=== PATIENT | female | born 1985 | race Caucasian/White ===

== ENCOUNTER 2020-06-24 15:09 | Inpatient (IN) | payer BC, SELFPAY ==
[2020-06-24] VITALS (30 sets, daily range): BP systolic 106–157; BP diastolic 69–110; PULSE 94–140; RESP 12–33; TEMP 36.7–39.5; O2SAT 97–100; BMI 36.1
--- NOTE | ~2020-06-24 | XR_ITS ---
EXAMINATION: XR chest 1V portable DATE: 06/24/2020 15:35 INDICATION: Chills. TECHNIQUE: A single frontal view of the chest was obtained. COMPARISON: None. FINDINGS: The chest demonstrates clear lungs without pneumonia, pleural effusion, or pneumothorax. Th e heart size is normal. IMPRESSION: 1. No acute cardiopulmonary disease. Reviewed, dictated and finalized at location A.
--- NOTE | 2020-06-24 15:15 | ED.GENADULT ---
HPI - General Adult General Chief complaint: JAVA DESIGNER Stated complaint: CHILLS/SHAKING S/P DELIVERY 5 DAYS AGO Time Seen by Provider: 06/24/20 15:15 Source: patient, family, EMS and RN notes reviewed Mode of arrival: EMS Limitations: no limitations History of Present Illness HPI narrative: Patient is 34 years old white female presents to the ED with sudden onset of chills and feeling ice cold all over started within 40 minutes prior to arrival to the emergency room by ambulance. Patient denies any fever, nausea, vomiting, diarrhea, constipation. Patient is a status post vaginal delivery 4 days ago at [facility], second-degree vaginal tears, 12 stitches. Patient is telling me that she have urinary incontinence after removing the Low catheter during delivery. Currently patient have light vaginal bleeding without any odor. Patient started having breastmilk for the first time yesterday, kept massaging her breast with the hard to touch. Not warm, not red Related Data Allergies Allergy/AdvReac Type Severity Reaction Status Date / Time No Known Allergies Allergy Verified 06/24/20 15:44 Review of Systems Review of Systems: Narrative: CONSTITUTIONAL: Denies fever, chills, or sweats. EYES: Denies visual changes, redness, or discharge. ENT: Denies rhinorrhea, congestion, sore throat, or otalgia. CARDIOVASCULAR: Denies chest pain, palpitations, or edema. RESPIRATORY: Denies cough or dyspnea. GASTROINTESTINAL: Denies abdominal pain, nausea, vomiting, or diarrhea. GENITOURINARY: Denies dysuria or hematuria. SKIN: Denies rash or itching. MUSCULOSKELETAL: Denies back pain, joint pain, or myalgia. NEUROLOGIC: Denies headache, numbness, or weakness. PSYCHIATRIC: Denies anxiety or depression. PMFSH Social History Social History Gender identity (if verbalized by the patient): Female Exam Narrative: Exam Narrative: General appearance: Well-developed, well-nourished, looks anxious Skin: Normal color, breast exam showed diffuse hardening, no erythema, no warmth, Head: Normocephalic, nontraumatic Eyes: Clear conjunctiva ENT: Oropharynx normal, ears normal, nose normal Neck: Supple, nontender Chest and respiratory: Airway patent, no respiratory distress, no accessory muscle use Heart: Tachycardia Abdomen: Soft, nontender, no organomegaly, quiet bowel sounds Vascular: Normal peripheral pulses, normal capillary refill. Musculoskeletal: Normal range of motion, nontender back Neurologic: Alert and oriented ?3, [facility] is normal as tested, no gross motor deficit Course Course Emergency Course: Stable Vital Signs Vital signs: Vital Signs Temperature 39.5 C H 06/24/20 15:40 Pulse Rate 140 H 06/24/20 15:40 Respiratory Rate 32 H 06/24/20 15:40 Blood Pressure 121/77 06/24/20 15:40 Pulse Oximetry 99 06/24/20 15:40 Temperature 39.5 C H 06/24/20 15:40 Pulse Rate 140 H 06/24/20 15:40 Respiratory Rate 32 H 06/24/20 15:40 Blood Pressure 121/77 06/24/20 15:40 Pulse Oximetry 99 06/24/20 15:40 Medical Decision Making MDM Narrative Medical decision making narrative: Patient presents with sudden onset of chills status post vaginal delivery 4 days ago. The differential diagnosis as below. Labs, blood culture, UA, chest x-ray, IV fluid ordered. Further plan to follow Differential Diagnosis Differential Diagnosis: Pneumonia, urinary tract infection, mastitis Vital Signs Vital Signs: Vital Signs Temperature 39.5 C H 06/24/20 15:40 Pulse Rate 140 H 06/24/20 15:40 Respiratory Rate 32 H 06/24/20 15:40 Blood Pressure 121/77 06/24/20 15:40 Pulse Oximetry 99 06/24/20 15:40 Te
--- NOTE | 2020-06-24 15:25 | ECG_ITS ---
Measurements Intervals [place] Rate: 128 P: 52 FL: 130 QRS: 43 QRSD: 72 T: 18 QT: 298 QTc: 436 Interpretive Statements SINUS TACHYCARDIA BASELINE ARTIFACT- I, II, AVR ABNORMAL ECG Electronically Signed On 06-24-2020 17:53:01 CDT by Goran Hills D.O.
[2020-06-24 16:04] LABS: Hematocrit 36.3 % (37.0-47.0); Hemoglobin 12.3 g/dL (12.0-15.0); Mean Corpuscular HGB Conc 33.9 g/dl (32-36); Mean Corpuscular Hemoglobin 29.6 pg (26-34); Mean Corpuscular Volume 87.3 fl (80-100); Mean Platelet Volume 9.8 fl (7.4-10.4); Platelet Count Result 156 k/mm3 (150-375); Red Blood Count 4.16 M/mm3 (4.2-5.4); Red Cell Distribution Width 16.1 % (11.5-14.5); White Blood Count 4.2 K/mm3 (4.5-10.0)
[2020-06-24 16:17] LABS: Alanine Aminotransferase 40 U/L (4-35); Albumin Level 3.5 g/dL (3.5-5.1); Alkaline Phosphatase 127 U/L (38-126); Anion Gap 8 mmol/L (8-16); Aspartate Amino Transferase 46 U/L (14-36); Bilirubin,Total 0.4 mg/dL (0.2-1.3); Blood Urea Nitrogen 15 mg/dL (7-17); Carbon Dioxide 19 mmol/L (22-30); Chloride 108 mmol/L (98-107); Estimated CRCL calculation 127 ml/min; Estimated Glomerular Filt Rate > 60; Glucose 87 mg/dL (65-105); Potassium 3.4 mmol/L (3.4-5.0); Sodium 135 mmol/L (137-145)
[2020-06-24 16:20] LABS: Partial Thromboplastin Time 24.6 SECONDS (22.3-36.8)
[2020-06-24] MEDS: KETOROLAC 30 MG/ML VIAL (*BKC) IV PUSH (16:33)
[2020-06-24] MEDS: ACETAMINOPHEN 500 MG TABLET 1000 MG PO (16:33)
[2020-06-24 16:35] LABS: Band Neutrophils Percent 20 % (0-6); Eosinophils Absolute Manual 0.04 K/mm3 (0.02-0.5); Eosinophils Percent Manual 1 % (0-4); Lymphocytes Absolute Manual 0.92 K/mm3 (1.1-4.5); Monocytes Absolute Manual 0.04 K/mm3 (0.1-0.90); Monocytes Percent Manual 1 % (3-9); Neutrophils Absolute Manual 3.19 K/mm3 (1.7-7.2); Neutrophils Percent Manual 56 % (46-73); Nucleated Red Blood Cells 1 %; Platelet Estimate Adequate (Adequate); Total Cells Counted 100
[2020-06-24 16:36] LABS: Anisocytosis 2+ (NORMAL)
[2020-06-24 16:49] LABS: CRP 4.4 mg/dL (<1.0)
[2020-06-24 16:50] LABS: Lactic Acid Reflex 0.8 mmol/L (0.7-2.1)
[2020-06-24 16:51] LABS: Add Urine Microscopic? YES; Appearance Urine Cloudy (Clear); Bacteria Urine 1+ /hpf; Bilirubin Urine Negative (Negative); Blood Urine 2+ (Negative); Color Urine Yellow (Yellow); Glucose Urine UA Negative (Negative); Ketones Urine Negative (Negative); Leukocyte Esterase Ur 3+ LEU/UL (Negative); Mucus Urine Rare /lpf; Nitrate Urine Positive (Negative); Protein Urine 2+ mg/dL (Negative); Specific Grav Ur 1.011 (1.001-1.035); Squamous Epithelial Cell Urine Rare /hpf (Few); Urobilinogen Urine Negative mg/dL (<2.0); WBC Urine >75 /hpf
--- NOTE | 2020-06-24 19:30 | ADMGEN ---
This patient, Denise Castaneda, was admitted to Medical Room 347-. Patient/family oriented to hospital policies and general routines including ID bracelet, bed and alarms, visiting hours, pain management, procedures, bathroom and other care routines, personal items, smoking policy, room service/diet, and visiting hours. Information on how to activate the Rapid Response Team has been discussed. Patient/Family are encouraged to report perceived risks to care and to ask questions if they do not understand what they are told or what they should do.
[2020-06-24] MEDS: LACTATED RINGERS 1,000 ML 125 ML IV CONT (20:35)
--- NOTE | 2020-06-24 20:35 | PM.IMHP ---
H&P: HPI History of Present Illness Date/Time: 06/24/20 20:31 Denise is a 34yo now P1001 who presented to the ER via ambulance with fever. She is PPD#4 s/p vaginal delivery at [facility] that was complicated by second degree laceration. In the ER, she was found to have a fever of 39.5, tachycardic, and UA concerning for UTI/pyelonephritis. She is breast feeding and endorses engorgement but no erythema, has been feeding/pumping regularly. She is having incontinence but denies dysuria. She reports light vaginal bleeding, no fundal tenderness. She reports nausea. She reports some right sided flank pain starting yesterday, worsening today. She reports significant chills that also worsened today. She denies any other complications with her . She denies CP, SOB, cough, [place], vision changes, vomiting, dizziness, diarrhea, leg pain/swelling or palpitations. No COVID symptoms. Urine culture and blood cultures were sent from the ER. Chief Complaint: fever Review of Systems Review of Systems: All systems reviewed & are unremarkable except as noted in HPI and below (HPI) [facility] Family History Family History Other Unknown family medical history Social History Social History Smoking status: Never smoker Alcohol intake: former Substance use: never Gender identity (if verbalized by the patient): Female Sexual Orientation (if Verbalized by the Patient): Straight or Heterosexual Spiritual care concerns: No Meds Home Medications and Allergies Home Medications Medication Instructions Recorded Confirmed Type ferrous sulfate 325 mg PO DAILY 06/24/20 06/24/20 History fluticasone propionate [Flonase] 1 spray INTRANASAL DAILY 06/24/20 06/24/20 History no.[id number] 1 cap PO DAILY 06/24/20 06/24/20 History [HEEL SEAM [id number]] Allergies Allergy/AdvReac Type Severity Reaction Status Date / Time No Known Allergies Allergy Verified 06/24/20 20:27 Vital Signs Vital Signs - 24 hr 06/24/20 15:40 Temperature 39.5 C H Pulse Rate 140 H Respiratory Rate 32 H Blood Pressure 121/77 Pulse Oximetry 99 Exam Const: General: cooperative, healthy appearing, comfortable and no acute distress Chest: Breast/axilla inspection: normal inspection of the breasts (engorged; no erythema of masses) Resp: Effort & Inspection: normal respiratory effort and able to speak in complete sentences Auscultation: clear to auscultation bilaterally Cardio: Rate: regular rate GI: Inspection: normal to inspection and non-distended GI Palp: No abdominal tenderness and Yes Soft to palpation Auscultation: normal bowel sounds : External Female Exam: laceration (laceration repair intact w/o drainage; normal lochia) Back/Spine/Pelvis: Back: no CVA tenderness and CVA tenderness Skin: General skin exam: normal color Neuro: General: patient oriented x3 Extrem: General: normal to inspection Psych: Appearance: grossly normal Affect: normal affect Attitude: cooperative H&P: Results Labs Labs: Short CBC 06/24/20 Range/Units 15:56 WBC 4.2 L (4.5-10.0) K/mm3 Hgb 12.3 (12.0-15.0) g/dL Hct 36.3 L (37.0-47.0) % Plt Count 156 (150-375) k/mm3 BMP 06/24/20 15:56 Sodium 135 L Potassium 3.4 Chloride 108 H Carbon Dioxide 19 L BUN 15 Creatinine 0.60 L Glucose 87 Calcium 9.0 Liver Function 06/24/20 Range/Units 15:56 Total Bilirubin 0.4 (0.2-1.3) mg/dL AST 46 H (14-36) U/L ALT 40 H (4-35) U/L Alkaline Phosphatase 127 H (38-126) U/L Albumin 3.5 (3.5-5.1) g/dL Urine 06/24/20 Range/Units 16:08 Urine Color Yellow (Yellow) Urine Appearance Cloudy H (Clear) Urine pH 6.0 (5.0-9.0) Ur Specific [place] 1.011 (1.001-1.035) Urine Protein 2+ H (Negative) mg/dL Urine Glucose (UA) Negative (Negative) mg/dL Assessment an
[2020-06-25 01:20] VITALS: TEMP 38.1
[2020-06-25] MEDS: ACETAMINOPHEN 500 MG TABLET 1000 MG PO ×3 (01:20→19:59)
[2020-06-25 02:20] VITALS: TEMP 37.2
--- NOTE | 2020-06-25 02:45 | PC.NURSE ---
0120: Patient c/o chills and shaking. States she is unable to get warm. Fundus is firm. Bilateral breast are also taut at this time. Slight fever noted 100.5; treated with tylenol 1000 mg. 0250: Fever, chills and shaking resolved. Patient educated on need to pump breast regularly Q2-3; incorporating massage and warm towels to encourage milk release. Patient would benefit from more education.
--- NOTE | 2020-06-25 04:07 | PC.NURSE ---
Received a call from RN, about pt only breast pumping 2cc per breast and stopping without fully emptying each breast. Patient was educated about pumping until empty, rotating breast with each pump, staying hydrated and how to use breast pump. She also received three educational documents, left at her bedside. She stated it was hard to pump both breast at the same time with her IV that is in her AC. She was educated on pumping one breast at a time so her arm with the IV was straight so she was able to receive IV fluids and be alarm free. She was mostly frustrated stating she did not get a pump until 9pm and had to connect the pump herself after not being able to pump for 6 hours. I explained the importance of now pumping every 2 hours and staying hydrated and we both went over how to place the pump to breast and how to connect pump. Her mother will be coming in this morning for emotional support and I stated the [place] consultant will be here on Friday if she has anymore questions or the nursery nurses can be reached to come over and assist in helping.
[2020-06-25] MEDS: KETOROLAC 30 MG/ML VIAL (*BKC) IV PUSH ×2 (04:52→12:00)
[2020-06-25 06:20] VITALS: BP 125/68; PULSE 84; RESP 12; TEMP 37.2; O2SAT 98
[2020-06-25 06:21] LABS: Hematocrit 31.8 % (37.0-47.0); Hemoglobin 10.9 g/dL (12.0-15.0); Mean Corpuscular HGB Conc 34.3 g/dl (32-36); Mean Corpuscular Hemoglobin 28.9 pg (26-34); Mean Corpuscular Volume 84.4 fl (80-100); Mean Platelet Volume 9.9 fl (7.4-10.4); Platelet Count Result 169 k/mm3 (150-375); Red Blood Count 3.77 M/mm3 (4.2-5.4); Red Cell Distribution Width 16.1 % (11.5-14.5); White Blood Count 13.2 K/mm3 (4.5-10.0)
[2020-06-25 06:41] LABS: Alanine Aminotransferase 35 U/L (4-35); Alkaline Phosphatase 101 U/L (38-126); Anion Gap 6 mmol/L (8-16); Aspartate Amino Transferase 37 U/L (14-36); Bilirubin,Total 0.3 mg/dL (0.2-1.3); Blood Urea Nitrogen 13 mg/dL (7-17); Calcium 8.2 mg/dL (8.4-10.2); Carbon Dioxide 21 mmol/L (22-30); Chloride 110 mmol/L (98-107); Estimated CRCL calculation 110 ml/min; Estimated Glomerular Filt Rate > 60; Glucose 101 mg/dL (65-105); Potassium 3.3 mmol/L (3.4-5.0); Sodium 137 mmol/L (137-145)
[2020-06-25] MEDS: LACTATED RINGERS 1,000 ML 125 ML IV CONT ×2 (06:58→16:47)
[2020-06-25 08:13] LABS: Band Neutrophils Percent 8 % (0-6); Lymphocytes Absolute Manual 1.32 K/mm3 (1.1-4.5); Monocytes Absolute Manual 0.26 K/mm3 (0.1-0.90); Monocytes Percent Manual 2 % (3-9); Neutrophils Absolute Manual 11.61 K/mm3 (1.7-7.2); Neutrophils Percent Manual 80 % (46-73); Total Cells Counted 100
[2020-06-25 08:14] LABS: Hypochromasia 2+ (NORMAL); Platelet Estimate Adequate (Adequate); Poikilocytosis 1+ (NORMAL)
[2020-06-25 10:16] VITALS: O2SAT 96
[2020-06-25 14:00] VITALS: BP 123/64; PULSE 83; RESP 18; TEMP 36.7; O2SAT 100
--- NOTE | 2020-06-25 16:02 | PM.OBPNVD ---
OB - PN: Subj Subjective Date/time seen: 06/25/20 16:02 PPD #5 Denise reports doing well today, would like to go home K[place]. She had a fever overnight. Her WBC also increased from 4 to 13.2. She denies any new symptoms. She is urinating w/o issues (continent now). She denies dysuria or flank pain. Her bleeding is light. She is pumping w/o issue. She is tolerating regular diet, passing gas. No CP, SOB, chills, N/V, diarrhea, URI symptoms, palpitations or dizziness. No abdominal pain. Blood and urine cultures are still pending. OB - PN: Obj Data Labs CBC & Chem 7: 06/25/20 05:50 06/25/20 05:50 Labs: Laboratory Results - last 24 hr 06/24/20 06/24/20 06/24/20 15:56 15:56 15:56 WBC 4.2 L RBC 4.16 L Hgb 12.3 Hct 36.3 L MCV 87.3 MCH 29.6 MCHC 33.9 RDW 16.1 H Plt Count 156 MPV 9.8 Immature Gran % (Auto) Not Reportable Neut % (Auto) Not Reportable Lymph % (Auto) Not Reportable [place] % (Auto) Not Reportable Eos % (Auto) Not Reportable Baso % (Auto) Not Reportable Lymph # (Auto) Not Reportable [place] # (Auto) Not Reportable Eos # (Auto) Not Reportable Baso # (Auto) Not Reportable Abs Immat Gran (auto) Not Reportable Absolute Neuts (auto) Not Reportable Absolute Nucleated RBC Not Reportable Total Counted 100 Neutrophils % (Manual) 56 Band Neutrophils % 20 H Lymphocytes % (Manual) 22.0 Monocytes % (Manual) 1 L Eosinophils % (Manual) 1 Nucleated RBC % Not Reportable Abs Neuts (Manual) 3.19 Abs Lymphs (Manual) 0.92 L Abs Monocytes (Manual) 0.04 L Absolute Eos (Manual) 0.04 Nucleated RBCs 1 Platelet Estimate Adequate Hypochromasia Poikilocytosis Anisocytosis 2+ PT 14.0 INR 1.0 APTT 24.6 Sodium 135 L Potassium 3.4 Chloride 108 H Carbon Dioxide 19 L Anion Gap 8 BUN 15 Creatinine 0.60 L Estim Creat Clear Calc 127 Estimated GFR > 60 Glucose 87 Lactic Acid Calcium 9.0 Total Bilirubin 0.4 AST 46 H ALT 40 H Alkaline Phosphatase 127 H C-Reactive Protein 4.4 H Total Protein 7.0 Albumin 3.5 Urine Color Urine Appearance Urine pH Ur Specific [place] Urine Protein Urine Glucose (UA) Urine Ketones Ur Blood (Man) Urine Nitrate Urine Bilirubin Urine Urobilinogen Leukocyte Esterase Rfl Urine RBC Urine WBC Ur Squamous Epith Cells Urine Bacteria Urine Mucus 06/24/20 06/24/20 06/25/20 16:08 16:33 05:50 WBC 13.2 H RBC 3.77 L Hgb 10.9 L Hct 31.8 L MCV 84.4 MCH 28.9 MCHC 34.3 RDW 16.1 H Plt Count 169 MPV 9.9 Immature Gran % (Auto) Not Reportable Neut % (Auto) Not Reportable Lymph % (Auto) Not Reportable [place] % (Auto) Not Reportable Eos % (Auto) Not Reportable Baso % (Auto) Not Reportable Lymph # (Auto) Not Reportable [place] # (Auto) Not Reportable Eos # (Auto) Not Reportable Baso # (Auto) Not Reportable Abs Immat Gran (auto) Not Reportable Absolute Neuts (auto) Not Reportable Absolute Nucleated RBC Not Reportable Total Counted 100 Neutrophils % (Manual) 80 H Band Neutrophils % 8 H Lymphocytes % (Manual) 10.0 L Monocytes % (Manual) 2 L Eosinophils % (Manual) Nucleated RBC % Not Reportable Abs Neuts (Manual) 11.61 H Abs Lymphs (Manual) 1.32 Abs Monocytes (Manual) 0.26 Absolute Eos (Manual) Nucleated RBCs Platelet Estimate Adequate Hypochromasia 2+ Poikilocytosis 1+ Anisocytosis PT INR APTT Sodium Potassium Chloride Carbon Dioxide Anion Gap BUN Creatinine Estim Creat Clear Calc Estimated GFR Glucose Lactic Acid 0.8 Calcium Total Bilirubin AST ALT Alkaline Phosphatase C-Reactive Protein Total Protein Albumin Urine Color Yellow Urine Appearance Cloudy H Ur
--- NOTE | 2020-06-25 18:17 | PC.NURSE ---
Dr. Saab confirmed consult via telephone callback. Verbalized agreement with current antibiotic therapy as ordered by Dr. Tim. Will review chart and assess patient Friday.
[2020-06-25 19:53] VITALS: BP 139/71; PULSE 90; RESP 12; TEMP 36.9; O2SAT 100
[2020-06-26] MEDS: LACTATED RINGERS 1,000 ML 125 ML IV CONT ×3 (02:26→21:50)
[2020-06-26] MEDS: KETOROLAC 30 MG/ML VIAL (*BKC) IV PUSH (02:28)
[2020-06-26 03:13] LABS: Basophils Percent Auto 0.4 % (0.2-1.2); Eosinophils Absolute Auto 0.1 K/mm3 (0-0.3); Eosinophils Percent Auto 1.4 % (0-4.4); Hematocrit 29.9 % (37.0-47.0); Hemoglobin 10.2 g/dL (12.0-15.0); Immature Granulocyte Absolute 0.24 K/mm3 (0.00-0.031); Immature Granulocyte Percent A 2.9 % (0-0.5); Lymphocytes Absolute Auto 0.77 K/mm3 (0.9-3.2); Lymphocytes Percent Auto 9.2 % (18.3-44.2); Mean Corpuscular HGB Conc 34.1 g/dl (32-36); Mean Corpuscular Hemoglobin 29.7 pg (26-34); Mean Corpuscular Volume 86.9 fl (80-100); Mean Platelet Volume 9.7 fl (7.4-10.4); Monocytes Absolute Auto 0.6 K/mm3 (0.1-0.6); Monocytes Percent Auto 7.7 % (2.6-8.5); Neutrophils Absolute Auto 6.6 K/mm3 (1.3-6.7); Neutrophils Percent Auto 78.4 % (45.5-73.1); Platelet Count Result 144 k/mm3 (150-375); Red Blood Count 3.44 M/mm3 (4.2-5.4); Red Cell Distribution Width 16.4 % (11.5-14.5); White Blood Count 8.4 K/mm3 (4.5-10.0)
[2020-06-26 03:22] LABS: Anion Gap 5 mmol/L (8-16); Blood Urea Nitrogen 16 mg/dL (7-17); Calcium 8.2 mg/dL (8.4-10.2); Carbon Dioxide 22 mmol/L (22-30); Chloride 108 mmol/L (98-107); Estimated CRCL calculation 98 ml/min; Estimated Glomerular Filt Rate > 60; Glucose 125 mg/dL (65-105); Potassium 3.3 mmol/L (3.4-5.0); Sodium 135 mmol/L (137-145)
[2020-06-26 06:05] VITALS: BP 134/82; PULSE 97; RESP 12; TEMP 36.5; O2SAT 100
--- NOTE | 2020-06-26 08:05 | PM.GYNPNOP ---
HEAVY CLEANER - A/P Assessment and plan (1) Pyelonephritis: Code(s): N12 - Tubulo-interstitial nephritis, not specified as acute or chronic Status: Acute Assessment and Plan: Afebrile and no elevated WBC. Will await Dr Saab input on antibiotic choice and duration re: home or continued in-house stay. Time Spent With Patient Time: Total time spent is greater than 50% in coordination of care (as documented) at patient's floor/unit and/or counseling patient: Time with patient: less than 15 minutes HEAVY CLEANER- PN:Subj Post-Op Subjective Date/time seen: 06/26/20 08:05 Feels better overall. Now continent. HEAVY CLEANER - PN: Obj Data Vital Signs Vital Signs: Vital Signs - 24 hr 06/25/20 10:16 06/25/20 14:00 06/25/20 19:53 Temperature 36.7 C 36.9 C Pulse Rate 83 90 Respiratory Rate 18 12 Blood Pressure 123/64 139/71 Pulse Oximetry 96 100 100 06/26/20 06:05 Temperature 36.5 C Pulse Rate 97 Respiratory Rate 12 Blood Pressure 134/82 Pulse Oximetry 100 Intake/Output Intake/Output: Intake & Output 06/23/20 06/24/20 06/25/20 06/26/20 23:59 23:59 23:59 23:59 Intake Total 50 5570 1900 Output Total 2300 2200 Balance 50 3270 -300 Meds/Results Medications: Active Medications Generic Name Dose Route Start Last Admin Trade Name Freq PRN Reason Stop Dose Admin Acetaminophen 1,000 mg 06/24/20 19:28 06/25/20 19:59 Acetaminophen 500 Mg Tablet PO 1,000 mg Q6H PRN Administration Mild Pain (1-3) or Fever Lactated Ringer's 1,000 mls @ 125 mls/hr 06/24/20 19:30 06/26/20 02:26 Lr - Lactated Ringers Iv IV CONT 125 mls/hr .Q8H GREGORY Administration Piperacillin Sod/Tazobactam Sod 4.5 gm in 100 mls @ 200 mls/hr 06/25/20 18:00 06/26/20 05:58 Zosyn 4.5 Gm/D5w 100 Ml IVPB Infused Q6HR GREGORY Infusion Ketorolac Tromethamine 30 mg 06/24/20 17:28 06/26/20 02:28 Ketorolac 30 Mg/Ml Vial (*Bkc) IV PUSH 06/29/20 17:29 30 mg Q6H PRN Administration Pain Rated 4-6 Ondansetron HCl 4 mg 06/24/20 17:28 Ondansetron Inj 4 Mg/2 Ml Vial IV PUSH Q4H PRN Nausea Radiology Results: ITS Impressions Chest X-Ray 06/24/20 15:42 IMPRESSION: 1. No acute cardiopulmonary disease. Labs CBC & Chem 7: 06/26/20 03:02 06/26/20 03:02 Labs: Laboratory Results - last 24 hr 06/25/20 06/26/20 06/26/20 05:50 03:02 03:02 WBC 8.4 RBC 3.44 L Hgb 10.2 L Hct 29.9 L MCV 86.9 MCH 29.7 MCHC 34.1 RDW 16.4 H Plt Count 144 L MPV 9.7 Immature Gran % (Auto) 2.9 H Neut % (Auto) 78.4 H Lymph % (Auto) 9.2 L [place] % (Auto) 7.7 Eos % (Auto) 1.4 Baso % (Auto) 0.4 Lymph # (Auto) 0.77 L [place] # (Auto) 0.6 Eos # (Auto) 0.1 Baso # (Auto) 0.0 Abs Immat Gran (auto) 0.24 H Absolute Neuts (auto) 6.6 Absolute Nucleated RBC 0.0 Total Counted 100 Neutrophils % (Manual) 80 H Band Neutrophils % 8 H Lymphocytes % (Manual) 10.0 L Monocytes % (Manual) 2 L Nucleated RBC % 0.0 Abs Neuts (Manual) 11.61 H Abs Lymphs (Manual) 1.32 Abs Monocytes (Manual) 0.26 Platelet Estimate Adequate Hypochromasia 2+ Poikilocytosis 1+ Sodium 135 L Potassium 3.3 L Chloride 108 H Carbon Dioxide 22 Anion Gap 5 L BUN 16 Creatinine 0.80 Estim Creat Clear Calc 98 Estimated GFR > 60 Glucose 125 H Calcium 8.2 L
[2020-06-26] MEDS: ACETAMINOPHEN 500 MG TABLET 1000 MG PO ×2 (11:07→17:28)
[2020-06-26 11:20] VITALS: TEMP 37.6
--- NOTE | 2020-06-26 11:34 | WPDINFPN2 ---
Progress Note: A&P Assessment and Plan (1) Fever: Code(s): R50.9 - Fever, unspecified Status: Acute Assessment and Plan: Rigors and fever due to Low catheter-associated UTI and bacteremia REC PipTazo, await final micro before oral Subjective Date/time seen: 06/26/20 11:34 Objective Data Vital Signs Vital Signs: Vital Signs - 24 hr 06/25/20 14:00 06/25/20 19:53 06/26/20 06:05 Temperature 36.7 C 36.9 C 36.5 C Pulse Rate 83 90 97 Respiratory Rate 18 12 12 Blood Pressure 123/64 139/71 134/82 Pulse Oximetry 100 100 100 06/26/20 11:20 Temperature 37.6 C H Pulse Rate Respiratory Rate Blood Pressure Pulse Oximetry Intake/Output Intake/Output: Intake & Output 06/23/20 06/24/20 06/25/20 06/26/20 23:59 23:59 23:59 23:59 Intake Total 50 5570 2140 Output Total 2300 3100 Balance 50 3270 -960 Meds/Results Medications: Active Medications Generic Name Dose Route Start Last Admin Trade Name Freq PRN Reason Stop Dose Admin Acetaminophen 1,000 mg 06/24/20 19:28 06/26/20 11:07 Acetaminophen 500 Mg Tablet PO 1,000 mg Q6H PRN Administration Mild Pain (1-3) or Fever Lactated Ringer's 1,000 mls @ 125 mls/hr 06/24/20 19:30 06/26/20 02:26 Lr - Lactated Ringers Iv IV CONT 125 mls/hr .Q8H GREGORY Administration Piperacillin Sod/Tazobactam Sod 4.5 gm in 100 mls @ 200 mls/hr 06/25/20 18:00 06/26/20 11:10 Zosyn 4.5 Gm/D5w 100 Ml IVPB 200 mls/hr Q6HR GREGORY Administration Ketorolac Tromethamine 30 mg 06/24/20 17:28 06/26/20 02:28 Ketorolac 30 Mg/Ml Vial (*Bkc) IV PUSH 06/29/20 17:29 30 mg Q6H PRN Administration Pain Rated 4-6 Ondansetron HCl 4 mg 06/24/20 17:28 Ondansetron Inj 4 Mg/2 Ml Vial IV PUSH Q4H PRN Nausea Radiology Results: ITS Impressions Chest X-Ray 06/24/20 15:42 IMPRESSION: 1. No acute cardiopulmonary disease. Labs Labs: Laboratory Results - last 24 hr 06/26/20 06/26/20 03:02 03:02 WBC 8.4 RBC 3.44 L Hgb 10.2 L Hct 29.9 L MCV 86.9 MCH 29.7 MCHC 34.1 RDW 16.4 H Plt Count 144 L MPV 9.7 Immature Gran % (Auto) 2.9 H Neut % (Auto) 78.4 H Lymph % (Auto) 9.2 L [place] % (Auto) 7.7 Eos % (Auto) 1.4 Baso % (Auto) 0.4 Lymph # (Auto) 0.77 L [place] # (Auto) 0.6 Eos # (Auto) 0.1 Baso # (Auto) 0.0 Abs Immat Gran (auto) 0.24 H Absolute Neuts (auto) 6.6 Absolute Nucleated RBC 0.0 Nucleated RBC % 0.0 Sodium 135 L Potassium 3.3 L Chloride 108 H Carbon Dioxide 22 Anion Gap 5 L BUN 16 Creatinine 0.80 Estim Creat Clear Calc 98 Estimated GFR > 60 Glucose 125 H Calcium 8.2 L
[2020-06-26 14:21] VITALS: BP 122/85; PULSE 80; RESP 16; TEMP 36.3; O2SAT 100
[2020-06-26 16:27] VITALS: TEMP 37.8
[2020-06-26 17:28] VITALS: TEMP 37.8
--- NOTE | 2020-06-26 17:37 | CONS_ITS ---
DATE OF CONSULTATION: 06/26/2020 REASON FOR CONSULTATION: Bacteremia. HISTORY OF PRESENT ILLNESS: A 34-year-old female who went into labor 5 days before the present admission and delivered early on the following day, June 20. She was discharged 2 days later. This was a vaginal delivery. She had epidural and also a Low catheter for a number of hours . After the Low was removed, she had urinary urgency and urinary incontinence, which is unusual for her. At home, she had also development of some right flank discomfort. On the day of admission, she had sudden onset of rigors with fever, which occurred later that evening as well. She had been given piperacillin tazobactam. Blood cultures now positive. Consultation requested. She has had no previous bloodstream infection. No other antibiotics in the last 6 weeks for any purpose. She has had no previous operations other than a cyst removal from the skin structures. She otherwise is healthy. She has had no further rigors in the last day and half. She has some vaginal bleeding but no pelvic pain. The incontinence has improved so far. ALLERGIES: NONE KNOWN. MEDICATIONS: As above. HABITS: No tobacco and no alcohol. PAST MEDICAL HISTORY: See above. No chronic medical illnesses. FAMILY HISTORY: Not pertinent to her present illness. SOCIAL HISTORY: She is an assistant financial accountant. , lives locally. The delivery was in [place], but she preferred to come to this hospital on the . She is breast-feeding. REVIEW OF SYSTEMS: Skin, constitutional, respiratory, GI, , otherwise negative. PHYSICAL EXAMINATION: GENERAL: Young female appears her actual age. No acute distress. VITAL SIGNS: Temperature on admission was 39.5 and early the following morning up to 38.1, now 37.6, 97, 12, 134/82, 99% room air. SKIN: No rashes. Warm and dry. She has a few ecchymoses where vein sticks have occurred. She has no ecchymoses elsewhere. ENT: The conjunctivae are normal. OROPHARYNX: Oral mucosa normal. NECK: No masses or thyromegaly. LUNGS: Clear to auscultation and percussion. BACK: No CVAT. CARDIAC: Regular rate and rhythm. No murmur, gallop, or rub. Pulses are 2+. ABDOMEN: Mildly obese, nontender. No masses. No organomegaly. Nondistended. EXTREMITIES: No clubbing, cyanosis, edema. LABORATORY DATA: Blood cultures from arrival, 2/2 sets, gram-negative rods to be identified. Urine culture, no results as yet. Blood cultures repeated early today. White blood cell count 8.4 today, was 4.2 on admission, 13.2 yesterday. Hemoglobin 10.2, which is down 2 points and platelets are 144. Differential with a minimal left shift. Chemistries with mild hyponatremia, hypokalemia. Glucose was normal on admission, now 125. Her transaminases are up, less than twice normal. Albumin 3.0. Urinalysis, multiple abnormalities, which are reviewed. RADIOLOGY: Chest x-ray normal. ASSESSMENT: 1. Fever and rigors due to gram-negative bacteremia in turn due to urinary tract infection. Other causes of her bacteremia are less likely including vaginal, uterine, lower GI, or primary bloodstream. Other causes for fever are unlikely. 2. day #6. RECOMMENDATIONS: 1. Piperacillin appropriate at this time. 2. Follow up on microbiology and once all results are back and if she is clinically stable, oral therapy could then be started. Thank you very much for asking me to see her. FRANSISCA LOYOLA M.D. ASSISTANT CORPORATE CONTROLLER ASSISTANT CORPORATE CONTROLLER D I MT: Isa
[2020-06-26 20:02] VITALS: BP 143/71; PULSE 67; RESP 16; TEMP 36.8; O2SAT 98
[2020-06-27] MEDS: ACETAMINOPHEN 500 MG TABLET 1000 MG PO (05:28)
[2020-06-27 05:34] VITALS: BP 147/88; PULSE 68; RESP 16; TEMP 36.6; O2SAT 100
[2020-06-27 05:58] LABS: Basophils Percent Auto 0.7 % (0.2-1.2); Eosinophils Percent Auto 0.5 % (0-4.4); Hematocrit 31.8 % (37.0-47.0); Hemoglobin 10.7 g/dL (12.0-15.0); Immature Granulocyte Absolute 0.26 K/mm3 (0.00-0.031); Immature Granulocyte Percent A 4.4 % (0-0.5); Lymphocytes Absolute Auto 1.23 K/mm3 (0.9-3.2); Mean Corpuscular HGB Conc 33.6 g/dl (32-36); Mean Corpuscular Hemoglobin 29.2 pg (26-34); Mean Corpuscular Volume 86.6 fl (80-100); Mean Platelet Volume 9.8 fl (7.4-10.4); Monocytes Absolute Auto 0.7 K/mm3 (0.1-0.6); Monocytes Percent Auto 11.1 % (2.6-8.5); Neutrophils Absolute Auto 3.7 K/mm3 (1.3-6.7); Neutrophils Percent Auto 62.3 % (45.5-73.1); Platelet Count Result 149 k/mm3 (150-375); Red Blood Count 3.67 M/mm3 (4.2-5.4); Red Cell Distribution Width 16.1 % (11.5-14.5); White Blood Count 5.9 K/mm3 (4.5-10.0)
[2020-06-27 06:29] LABS: Alanine Aminotransferase 126 U/L (4-35); Albumin Level 2.9 g/dL (3.5-5.1); Alkaline Phosphatase 260 U/L (38-126); Anion Gap 6 mmol/L (8-16); Aspartate Amino Transferase 143 U/L (14-36); Bilirubin,Total 0.1 mg/dL (0.2-1.3); Blood Urea Nitrogen 8 mg/dL (7-17); Calcium 8.2 mg/dL (8.4-10.2); Carbon Dioxide 22 mmol/L (22-30); Chloride 110 mmol/L (98-107); Estimated CRCL calculation 110 ml/min; Estimated Glomerular Filt Rate > 60; Glucose 90 mg/dL (65-105); Potassium 3.5 mmol/L (3.4-5.0); Sodium 138 mmol/L (137-145)
[2020-06-27] MEDS: LACTATED RINGERS 1,000 ML 125 ML IV CONT (07:00)
--- NOTE | 2020-06-27 07:36 | PM.OBPNVD ---
OB - PN: Subj Subjective Date/time seen: 06/27/20 07:36 HD #4, PPD#7 Denise reports feeling well. Afebrile overnight. WBC has trended down to 5.9. Blood and urine cultures are growing e. coli; sensitivities pending. She has continued receiving zosyn. She is tolerating regular diet. Normal bowel/bladder function. She is ambulating. She denies pain. Her vaginal bleeding is light.She it pumping. She denies CP, SOB, fever, chills, dysuria, flank pain, N/V, LE swelling, [place], vision changes, dizziness, or palpitations. OB - PN: Obj Data Labs CBC & Chem 7: 06/27/20 05:53 06/27/20 05:53 Labs: Laboratory Results - last 24 hr 06/27/20 06/27/20 05:53 05:53 WBC 5.9 RBC 3.67 L Hgb 10.7 L Hct 31.8 L MCV 86.6 MCH 29.2 MCHC 33.6 RDW 16.1 H Plt Count 149 L MPV 9.8 Immature Gran % (Auto) 4.4 H Neut % (Auto) 62.3 Lymph % (Auto) 21.0 [place] % (Auto) 11.1 H Eos % (Auto) 0.5 Baso % (Auto) 0.7 Lymph # (Auto) 1.23 [place] # (Auto) 0.7 H Eos # (Auto) 0.0 Baso # (Auto) 0.0 Abs Immat Gran (auto) 0.26 H Absolute Neuts (auto) 3.7 Absolute Nucleated RBC 0.0 Nucleated RBC % 0.0 Sodium 138 Potassium 3.5 Chloride 110 H Carbon Dioxide 22 Anion Gap 6 L BUN 8 D Creatinine 0.70 Estim Creat Clear Calc 110 Estimated GFR > 60 Glucose 90 Calcium 8.2 L Total Bilirubin 0.1 L AST 143 H ALT 126 H Alkaline Phosphatase 260 H Total Protein 6.0 L Albumin 2.9 L OB - PN A/P Assessment and Plan (1) Pyelonephritis: Code(s): N12 - Tubulo-interstitial nephritis, not specified as acute or chronic Status: Acute Assessment and Plan: - urine culture and first set of blood cultures: e. coli, sensitivities pending - repeat blood cultures pending - WBC down trending, afebrile - will transition to PO abx once sensitivities result - possible discharge this PM or tomorrow AM Time Spent With Patient Time: Total time spent is greater than 50% in coordination of care (as documented) at patient's floor/unit and/or counseling patient: Review of Systems Review of Systems: All systems reviewed & are unremarkable except as noted in HPI and below (HPI) Exam Const: General: cooperative, healthy appearing, comfortable and no acute distress Resp: Effort & Inspection: normal respiratory effort Auscultation: clear to auscultation bilaterally Cardio: Rate: regular rate GI: GI Palp: No abdominal tenderness and Yes Soft to palpation Auscultation: normal bowel sounds : Other: fundus firm, non-tender Skin: General skin exam: normal color Neuro: General: patient oriented x3 Extrem: General: normal to inspection Psych: Appearance: grossly normal Affect: normal affect Attitude: cooperative
[2020-06-27] MEDS: AMOXICILLIN/CLAVULANATE K 500-125 MG TAB 1 TABLET PO (13:26)
[2020-06-27 14:00] VITALS: BP 140/82; PULSE 70; RESP 16; TEMP 36.7; O2SAT 100
--- NOTE | 2020-06-29 05:56 | PM.DS ---
DS: Admitting Diagnosis Admitting Diagnosis Admitting Diagnosis: fever DS: Discharge Diagnosis Discharge Diagnosis (1) Pyelonephritis: Code(s): N12 - Tubulo-interstitial nephritis, not specified as acute or chronic Status: Acute (2) Bacteremia due to Escherichia coli: Code(s): R78.81 - Bacteremia; B96.20 - Unspecified Escherichia coli [E. coli] as the cause of diseases classified elsewhere Status: Acute DS: Summary Hospital Course Hospital Course: Denise was admitted from the ER w/ fever >103F 4 days after vaginal delivery at outside hospital. Blood and urine cultures were obtained in the ER and she was started on ceftriaxone as we were concerned for pyelonephritis. She was subsequently diagnosed w/ leukocytosis, and continued having fevers. Blood cultures returned positive and were identified as e.coli. Her antibiotics were transitioned to zosyn. Repeat blood cultures were obtained and remained negative. She remained afebrile and her WBC trended down to normal. She was transitioned to Bactrim PO and remained stable. She was discharged home on HD# 4. She was breast feeding without issues. Tolerating regular diet. Using restroom normally and ambulating. Time Spent with Patient Time attestation: Total time spent providing and/or coordinating discharge services: Exam Const: General: cooperative, healthy appearing, comfortable and no acute distress Resp: Effort & Inspection: normal respiratory effort and able to speak in complete sentences Auscultation: clear to auscultation bilaterally Cardio: Rate: regular rate GI: Inspection: non-distended GI Palp: No abdominal tenderness, Yes Soft to palpation and No Tenderness to palpation present (GI) Auscultation: normal bowel sounds : Other: fundus firm and non-tender; normal lochia Back/Spine/Pelvis: Back: no CVA tenderness Skin: General skin exam: normal color Neuro: General: patient oriented x3 Extrem: General: normal to inspection Psych: Appearance: grossly normal Affect: normal affect Attitude: cooperative Discharge Plan Discharge Attending physician on discharge: Cierra Tim Consulting providers: Fuentes Saab ; Goran [place] ; Lele Perez ; Efraín Lubin V. Discharging Clinician: Cierra Tim Anticipated Discharge Date/Time: 06/27/20 16:57 Patient Disposition: Home, Self-Care Activity: pelvic rest Diet: as tolerated and regular Patient Instructions: Antibiotic Form, Piperacillin (By injection), Mastitis (GEN), Pain Management (DC), Catheter-associated Urinary Tract Infection (DC) Stand Alone Forms: General Discharge Information Follow-up/Referrals: Cierra Tim MD [Primary Care Provider] - Discharge Medications: New amoxicillin-pot clavulanate [Augmentin] 500-125 mg Tablet 1 tablet PO Q8HR 12 Days Qty: 36 RF: 0 fluconazole [Diflucan] 150 mg tablet 150 mg PO ONCE PRN (Reason: vaginal irritation) 1 Days Qty: 1 RF: 1 Continued ferrous sulfate 325 mg (65 mg iron) tablet 325 mg PO DAILY 30 Days Qty: 30 RF: 0 fluticasone propionate 50 mcg/actuation [place],Suspension 1 spray INTRANASAL DAILY 30 Days Qty: 1 RF: 0 [employer]IAN-PNV-DHA 28 mg iron- 1 mg-200 mg capsule 1 cap PO DAILY 90 Days Qty: 90 RF: 0 Date of admission: 06/26/20 15:27 Primary Care Provider: Cierra Tim Admitting Provider: Cierra Tim Attending physician on admission: Cierra Tim Condition: Stable
== END 2020-06-27 17:40 | disposition home or self-care (01) | DRG 776 ==
LOC: ANHED 17:11 → ANH3MED 18:57
PROVIDERS: Admitting Provider Obstetrics & Gynecology; Emergency Provider Emergency Medicine; PCP Obstetrics & Gynecology; Visit Provider Obstetrics & Gynecology
DX: O86.21 Infection of kidney following delivery (principal); R78.81 Bacteremia; O99.893 Other specified diseases and conditions complicating puerperium; B96.20 Unspecified Escherichia coli [E. coli] as the cause of diseases classified elsewhere; Z79.899 Other long term (current) drug therapy
CPT/HCPCS: 36415; 71045; 80048; 80053; 81001; 83605; 85025; 85610; 85730; 86140; 87040; 87077; 87086; 87088; 87186; 93005; 96361; 96365; 96366; 96367; 96375; 96376; 99285; A9270; G0378; J0696; J1885; J2543; J7120